=== PATIENT | male | born 1970 | race Caucasian/White ===

== ENCOUNTER → 2021-02-05 | Outpatient (CLI) | payer OTHER ==
[~2021-02-05] MED LIST: ACYCLOVIR400 MG PO; BUSPAR 5MG TABLE5 MG PO; COZAAR25 MG PO; ISENTRESS400 MG PO; LAMICTAL200 MG PO; NORCO 7.5-3251 EACH PO; NORVIR100 MG PO; NOVOLOG100 UNIT/1 IL; PRAVACHOL20 MG PO; REYATAZ300 MG PO; TRUVADA 200 MG1 EACH PO; VITAMIN D 11000 UNIT PO; WELLBUTRIN XL300 MG PO
== END ==
LOC: KOH-I 11:15
DX: M54.16 Radiculopathy, lumbar region (principal); M47.817 Spondylosis without myelopathy or radiculopathy, lumbosacral region; M43.18 Spondylolisthesis, sacral and sacrococcygeal region
CPT/HCPCS: 72148

== ENCOUNTER → 2022-06-09 | Outpatient (CLI) | payer OTHER | LOC: KOH-I 12:31 | DX: R07.81 Pleurodynia (principal) | CPT/HCPCS: 71046 ==

== ENCOUNTER → 2022-06-18 | Outpatient (CLI) | payer OTHER | LOC: KOH-I 15:00 | DX: R55 Syncope and collapse (principal) | CPT/HCPCS: 70450 ==